=== PATIENT | female | born 1980 ===

== ENCOUNTER 2022-10-25 08:13 | Inpatient (IN) | payer OTHER ==
[~2022-10-25] VITALS: Ht 160 cm; Wt 68.0 kg
[2022-10-25] MEDS ORDERED: ZESTRIL20 MG PO (10:53)
[2022-10-25] MEDS ORDERED: METFORMIN HCL500 M3 PO (10:54)
[2022-10-25] MEDS ORDERED: HYDROCHLOROTHIA25 MG PO (10:54)
[2022-10-25] MEDS ORDERED: NORVASC5 MG PO (10:54)
[2022-10-25] MEDS ORDERED: ZYRTEC10 M3 PO (10:55)
[2022-10-25] MEDS ORDERED: MONTELUKAST SOD10 MG PO (10:55)
[2022-10-25] MEDS ORDERED: LIPITOR40 MG PO (10:56)
[2022-10-30] MEDS ORDERED: GABAPENTIN300 MG PO (07:05)
[2022-10-30] MEDS ORDERED: IBUPROFEN800 MG PO (07:05)
[2022-10-30] MEDS ORDERED: SIMETHICONE125 M1 PO (07:06)
[2022-10-30] MEDS ORDERED: POLY119PG PO (07:06)
[2022-10-30] MEDS ORDERED: HIBICLENS118 ML SPEPROC (07:08)
== END 2022-10-30 10:13 | disposition home or self-care (01) | DRG 743 ==
LOC: O/R 10-28 05:11 → OB/GYN 10-28 09:00
PROVIDERS: ADMIT Obstetrics & Gynecology; ATTEND Obstetrics & Gynecology
PROC: 0DNW0ZZ Release Peritoneum, Open Approach (ICD-10-PCS; 2022-10-28)
PROC: 0UT90ZZ Resection of Uterus, Open Approach (ICD-10-PCS; principal; 2022-10-28 10:30)
DX: D25.1 Intramural leiomyoma of uterus (principal); N80.03 Adenomyosis of the uterus; N73.6 Female pelvic peritoneal adhesions (postinfective); Z20.822 Contact with and (suspected) exposure to COVID-19